=== PATIENT | male | born 1995 | race Caucasian/White ===

== ENCOUNTER 2021-01-20 18:07 | Emergency (ER) | payer OTHER ==
[2021-01-20 18:54] LABS: EOSINOPHIL 5.1 % (0-5); HCT 40.6 % (42.0-52.0); HGB 14.2 g/dl (13.2-18.0); LYMPHOCYTE 26.6 % (15-48); MCH 30.2 pg (25.0-31.0); MCV 86.4 fL (78.0-100.0); MONOCYTE 9.6 % (0-12); MPV 10.7 fL (6.0-9.5); NEUTROPHIL 56.9 % (41-80); NRBC 0; PLT 213 K/uL (150-400); RDW 11.9 % (11.5-14.0); WBC 7.2 K/uL (4.0-10.5)
[2021-01-20 19:25] LABS: CREATININE 0.8 mg/dL (0.67-1.17); POTASSIUM 3.8 mmol/L (3.5-5.1)
[2021-01-20] MEDS ORDERED: LASIX20 MG PO (20:25)
[2021-01-20] MEDS ORDERED: KLOR-CON 1010 MEQ PO (20:25)
== END 2021-01-20 20:36 | disposition home or self-care (01) ==
LOC: FER 18:07
PROVIDERS: Nurse Practitioner Family
DX: R60.0 Localized edema (principal); I10 Essential (primary) hypertension; Z88.8 Allergy status to other drugs, medicaments and biological substances; Z79.899 Other long term (current) drug therapy
CPT/HCPCS: 36415; 80048; 83880; 84550; 85025; 99283

== ENCOUNTER 2021-02-17 19:58 | Emergency (ER) | payer OTHER ==
[~2021-02-17 19:58] MED LIST: KLOR-CON 1010 MEQ PO; LASIX20 MG PO
[2021-02-17 22:31] LABS: EOSINOPHIL 5.7 % (0-5); HGB 15.3 g/dl (13.2-18.0); LYMPHOCYTE 33.6 % (15-48); MCH 29.4 pg (25.0-31.0); MCHC 34.8 g/dL (32.0-36.0); MCV 84.6 fL (78.0-100.0); MONOCYTE 9.9 % (0-12); MPV 10.2 fL (6.0-9.5); NRBC 0; PLT 241 K/uL (150-400); RDW 12.1 % (11.5-14.0); WBC 8.3 K/uL (4.0-10.5)
[2021-02-17 22:35] LABS: BILIRUBIN NEGATIVE (NEGATIVE); BLOOD NEGATIVE Ery/uL (NEGATIVE); CLARITY CLEAR (CLEAR); COLOR YELLOW (YELLOW); GLUCOSE (U) NORMAL (NORMAL); LEUKOCYTES NEGATIVE Leu/uL (NEGATIVE); NITRITE NEGATIVE (NEGATIVE); PROTEIN NEGATIVE (NEGATIVE); SPECIFIC GRAVITY >=1.030 (1.001-1.030); UROBILINOGEN 0.2 mg/dL (0.2-1.0); pH 5.5 (5.0-9.0)
[2021-02-17 22:41] LABS: AMPHETAMINES NEGATIVE (NEGATIVE); BARBITURATES NEGATIVE (NEGATIVE); ECSTASY (MDMA) NEGATIVE (NEGATIVE); MARIJUANA (THC) NEGATIVE (NEGATIVE); METHADONE NEGATIVE (NEGATIVE); OPIATES NEGATIVE (NEGATIVE); OXYCODONE NEGATIVE (NEGATIVE)
[2021-02-17 22:58] LABS: ACETAMINOPHEN (TYLENOL) < 2.0 ug/mL (10.0-30.0); BUN 15 mg/dL (7-18); BUN/CREAT RATIO (CALC) 14.7 RATIO; CHLORIDE 103 mmol/L (98-107); CO2 (BICARBONATE) 29 mmol/L (21-32); CREATININE 1.02 mg/dL (0.67-1.17); GLUCOSE 100 mg/dL (74-106); POTASSIUM 3.7 mmol/L (3.5-5.1)
== END 2021-02-18 03:50 | disposition home or self-care (01) ==
LOC: FER 19:58
PROVIDERS: Emergency Medicine
DX: F20.9 Schizophrenia, unspecified (principal); F31.9 Bipolar disorder, unspecified; F17.210 Nicotine dependence, cigarettes, uncomplicated
CPT/HCPCS: 36415; 80048; 80305; 81003; 85025; 99284; G0480

== ENCOUNTER 2021-03-23 15:25 | Emergency (ER) | payer OTHER ==
[2021-03-23 17:35] LABS: BASOPHIL 0.7 % (0-2); EOSINOPHIL 3.8 % (0-5); HCT 46.3 % (42.0-52.0); HGB 16.2 g/dl (13.2-18.0); MONOCYTE 12.9 % (0-12); MPV 10.8 fL (6.0-9.5); NEUTROPHIL 50.6 % (41-80); NRBC 0; PLT 176 K/uL (150-400); RBC 5.58 M/uL (4.70-6.00); RDW 12.1 % (11.5-14.0); WBC 4.4 K/uL (4.0-10.5)
[2021-03-23 17:41] LABS: BILIRUBIN NEGATIVE (NEGATIVE); BLOOD NEGATIVE Ery/uL (NEGATIVE); CLARITY CLEAR (CLEAR); COLOR YELLOW (YELLOW); GLUCOSE (U) NORMAL (NORMAL); LEUKOCYTES NEGATIVE Leu/uL (NEGATIVE); NITRITE NEGATIVE (NEGATIVE); PROTEIN NEGATIVE (NEGATIVE); SPECIFIC GRAVITY 1.025 (1.001-1.030); UROBILINOGEN 0.2 mg/dL (0.2-1.0); pH 6.5 (5.0-9.0)
[2021-03-23 17:52] LABS: ALBUMIN 4.1 g/dL (3.4-5.0); BILIRUBIN - TOTAL 0.4 mg/dL (0.2-1.0); BUN/CREAT RATIO (CALC) 11.8 RATIO; CREATININE 0.93 mg/dL (0.67-1.17); GLOBULIN (CALCULATION) 3.4 g/dL; POTASSIUM 4.2 mmol/L (3.5-5.1); TOTAL PROTEIN 7.5 g/dL (6.4-8.2)
[2021-03-23] MEDS ORDERED: PROTONIX 40MG T40 MG PO (19:04)
[2021-03-23] MEDS ORDERED: NORCO 5-325 TA1 EACH PO (19:04)
== END 2021-03-23 19:29 | disposition home or self-care (01) ==
LOC: FER 15:25
PROVIDERS: Internal Medicine
DX: U07.1 COVID-19 (principal); F20.9 Schizophrenia, unspecified; F17.210 Nicotine dependence, cigarettes, uncomplicated
CPT/HCPCS: 36415; 71045; 80053; 81003; 85025; 93005; J1170; J2405